=== PATIENT | male | born 1960 | race Caucasian/White ===

== ENCOUNTER → 2024-04-23 | Outpatient (CLI) | payer BC ==
--- NOTE | 2024-04-23 14:12 | CTL ---
EXAMINATION TYPE: CT Low Dose Lung DATE OF EXAM ORDERED: 04/23/2024 HISTORY: Personal history of nicotine dependence, 40 pack-year history, quit smoking in 2022. Lung ca ncer screening CT DLP: [address] CTDI: 2.22 mGy Automated exposure control for dose reduction was used. SCREENING VISIT: First screening visit COMPARISON: Chest radiograph 06/10/2020 TECHNIQUE: Low dose computed tomography scan was performed through the chest at 1 mm thick sections a nd reconstructed images in multiple planes at 1 mm and [address] DIAGNOSTIC QUALITY: Satisfactory FINDINGS: Nodules: No clinically significant pulmonary nodules identified. LUNGS: COPD: Severity: None Fibrosis: Severity: None Lymph nodes: None Other findings: Mild biapical pleural-parenchymal scarring. Minimal atelectasis along the medial aspe ct of the right middle lobe and lingula. RIGHT PLEURAL SPACE: Effusion: None Calcification: None Thickening: None Pneumothorax: None LEFT PLEURAL SPACE: Effusion: None Calcification: None Thickening: None Pneumothorax: None HEART: Heart Size: Normal Coronary Calcification: Small Pericardial Effusion: None OTHER FINDINGS: Upper abdomen: None Bony thorax: None Supraclavicular region: None Other: None IMPRESSION: No clinically significant pulmonary nodules identified. CT LUNG RAD AND CT CHEST RECOMMENDATION: Lung-Rad 1 Negative: Continue annual screening with LDCT in 12 months. S Modifier (other clinically significant findings): None
== END | disposition home or self-care (01) ==
LOC: RADCTMAIN 12:35
PROVIDERS: ATTEND Internal Medicine
DX: Z12.2 Encounter for screening for malignant neoplasm of respiratory organs (principal); Z87.891 Personal history of nicotine dependence
CPT/HCPCS: 71271